=== PATIENT | male | born 1965 | race Caucasian/White ===

== ENCOUNTER 2017-09-30 10:02 | Inpatient (IN) | payer MEDICAID ==
[2017-09-30] MEDS: ONDANSETRON 4 MG INJ IV (13:43)
[2017-09-30] MEDS: SOD CHLORIDE 0.9% 1,000 ML IV ×2 (13:43→17:34)
[2017-09-30 14:24] LABS: ADD MAN DIFF? NO
[2017-09-30 14:33] LABS: ADD UMIC YES; UR ASCORBIC ACID NEGATIVE (NEGATIVE); UR BACTERIA FEW /HPF (NONE SEEN); UR BILIRUBIN (Dip) 1+ mg/dL (NEGATIVE); UR BLOOD (Dip) 1+ mg/dL (NEGATIVE); UR CLARITY SLIGHTLY CLOUDY (CLEAR); UR COLOR AMBER (YELLOW); UR GLUCOSE (Dip) 2+ mg/dL (NEGATIVE); UR HYALINE CAST FEW /HPF (NONE SEEN); UR KETONES (Dip) NEGATIVE (NEGATIVE); UR LEUKOCYTE ESTERASE (Dip) NEGATIVE Leu/ul (NEGATIVE); UR MUCUS MANY /HPF (NONE SEEN); UR NITRITE (Dip) NEGATIVE (NEGATIVE); UR NONSQUAMOUS EPITHELIAL CELL 7 /HPF (NONE SEEN); UR RBC 0 /HPF (0-5); UR SPECIFIC GRAVITY (Dip) 1.031 (1.003-1.030); UR SQUAMOUS EPITHELIAL CELL FEW /HPF (FEW); UR TOTAL PROTEIN (Dip) 2+ mg/dl (NEGATIVE); UR UROBILINOGEN (Dip) 2+ mg/dL (NEGATIVE); UR WBC 23 /HPF (0-5)
[2017-09-30 14:47] LABS: ALANINE AMINOTRANSFERASE 50 IU/L (13-69); ALBUMIN 3.9 g/dl (3.3-4.9); ALBUMIN/GLOBULIN RATIO 0.75; ALKALINE PHOSPHATASE 174 IU/L (42-121); ANION GAP 16 (8-16); ASPARTATE AMINO TRANSFERASE 107 IU/L (15-46); BILIRUBIN,INDIRECT 2.8 mg/dl (0-1.1); BILIRUBIN,TOTAL 3.3 mg/dl (0.2-1.3); BLOOD UREA NITROGEN 12 mg/dl (7-20); CALCIUM 8.8 mg/dl (8.4-10.2); CARBON DIOXIDE 27 mmol/L (21-31); CHLORIDE 95 mmol/L (97-110); CREATININE 0.84 mg/dl (0.61-1.24); GLUCOSE 195 mg/dl (70-220); LIPASE 224 U/L (23-300); POTASSIUM 3.1 mmol/L (3.5-5.1); SODIUM 135 mmol/L (135-144); TOTAL PROTEIN 9.1 g/dl (6.1-8.1)
[2017-09-30 14:48] LABS: WHITE BLOOD COUNT 6.4 10^3/ul (4.8-10.8)
[2017-09-30 14:48] LABS: ABNORMAL IP MESSAGE 1; BASOPHIL # 0.1 10^3/ul (0.0-0.1); BASOPHILS % 0.9 % (0.0-2.0); EOSINOPHILS # 0.2 10^3/ul (0.0-0.5); EOSINOPHILS % 2.7 % (0.0-7.0); HEMATOCRIT 39.3 % (42.0-52.0); HEMOGLOBIN 13.1 g/dl (14.0-18.0); LYMPHOCYTES # 1.4 10^3/ul (0.8-2.9); LYMPHOCYTES % 21.4 % (15.0-51.0); MEAN CORPUSCULAR HEMOGLOBIN 29.4 pg (29.0-33.0); MEAN CORPUSCULAR HGB CONC 33.3 g/dl (32.0-37.0); MEAN CORPUSCULAR VOLUME 88.1 fl (82.0-101.0); MONOCYTE # 1.1 10^3/ul (0.3-0.9); MONOCYTES % 17.4 % (0.0-11.0); NEUTROPHIL # 3.7 10^3/ul (1.6-7.5); NEUTROPHILS % 57.3 % (39.0-77.0); PLATELET COUNT 67 10^3/UL (140-415); POSITIVE DIFF @See below; RED BLOOD COUNT 4.46 10^6/ul (4.70-6.10); RED CELL DISTRIBUTION WIDTH 20.2 % (11.5-14.5)
[2017-09-30] MEDS ORDERED: ACETAMINOPHEN 325 MG TAB PO ×2 (17:30→18:30)
[2017-09-30] MEDS ORDERED: ONDANSETRON 4 MG INJ IV ×2 (17:30→18:30)
[2017-09-30] MEDS: POTASSIUM CHLORIDE 20 MEQ POWDER FOR ORAL SOLN PO (17:33)
[2017-09-30] MEDS ORDERED: LORAZEPAM 2 MG INJ IV (18:30)
[2017-09-30] MEDS ORDERED: HYDROCODONE/APAP (5/325) TAB PO (18:30)
[2017-09-30] MEDS ORDERED: DOCUSATE SODIUM 100 MG CAP PO (18:30)
[2017-09-30] MEDS ORDERED: NA PHOSPHATE/BIPHOS 133 ML ENEMA PR (18:30)
[2017-09-30] MEDS ORDERED: morphine 2 MG INJ IV (18:30)
[2017-09-30] MEDS ORDERED: ALBUTEROL/IPRATROPIUM (NEB) 3 ML AMP HHN (18:30)
[2017-09-30] MEDS ORDERED: NACL 0.9% 3 ML SYG IV (18:30)
[2017-09-30] MEDS ORDERED: hydrALAzine 20 MG INJ IV (18:30)
[2017-09-30] MEDS ORDERED: MAGNESIUM HYDROXIDE 30ML CUP PO (18:30)
[2017-09-30] MEDS ORDERED: NITROGLYCERIN (SL) 0.4 MG TAB SL (18:30)
[2017-09-30 19:37] LABS: INR 1.27; PROTIME 16.1 Sec (11.9-14.9); PT RATIO 1.3
[2017-09-30 19:38] LABS: PARTIAL THROMBOPLASTIN TIME 35.2 Sec (25.0-35.0)
[2017-09-30] MEDS ORDERED: HEPARIN 5,000 UNIT/0.5 ML VIAL SC (21:00)
[2017-09-30] MEDS: INSULIN ASPART [NOVOLOG] 3 ML PEN SC (21:00)
[2017-09-30 21:18] LABS: FREE T4 (FREE THYROXINE) 2.22 ng/dl (0.64-1.79)
[2017-10-01] MEDS: INSULIN ASPART [NOVOLOG] 3 ML PEN SC ×5 (01:00→17:00)
[2017-10-01] MEDS: SOD CHLORIDE 0.9% 1,000 ML IV ×4 (04:25→23:29)
[2017-10-01 05:26] LABS: ADD MAN DIFF? NO
[2017-10-01 05:35] LABS: ABNORMAL IP MESSAGE 1; BASOPHIL # 0.1 10^3/ul (0.0-0.1); BASOPHILS % 1.7 % (0.0-2.0); EOSINOPHILS # 0.3 10^3/ul (0.0-0.5); EOSINOPHILS % 6.4 % (0.0-7.0); HEMATOCRIT 35.3 % (42.0-52.0); HEMOGLOBIN 11.7 g/dl (14.0-18.0); LYMPHOCYTES # 1.4 10^3/ul (0.8-2.9); MEAN CORPUSCULAR HGB CONC 33.1 g/dl (32.0-37.0); MEAN CORPUSCULAR VOLUME 87.6 fl (82.0-101.0); MEAN PLATELET VOLUME 11.2 fl (7.4-10.4); MONOCYTE # 0.9 10^3/ul (0.3-0.9); MONOCYTES % 18.8 % (0.0-11.0); NEUTROPHIL # 2.1 10^3/ul (1.6-7.5); NEUTROPHILS % 43.9 % (39.0-77.0); PLATELET COUNT 59 10^3/UL (140-415); POSITIVE DIFF @See below; RED BLOOD COUNT 4.03 10^6/ul (4.70-6.10)
[2017-10-01 05:35] LABS: WHITE BLOOD COUNT 4.7 10^3/ul (4.8-10.8)
[2017-10-01] MEDS: PANTOPRAZOLE 40 MG INJ IV (05:42)
[2017-10-01 06:11] LABS: PHOSPHORUS 3.2 mg/dl (2.5-4.9)
[2017-10-01 06:11] LABS: MAGNESIUM 1.7 mg/dl (1.7-2.5)
[2017-10-01 06:14] LABS: ALANINE AMINOTRANSFERASE 44 IU/L (13-69); ALBUMIN 3.1 g/dl (3.3-4.9); ALBUMIN/GLOBULIN RATIO 0.68; ALKALINE PHOSPHATASE 131 IU/L (42-121); ANION GAP 12 (8-16); ASPARTATE AMINO TRANSFERASE 89 IU/L (15-46); BILIRUBIN,INDIRECT 2.5 mg/dl (0-1.1); BILIRUBIN,TOTAL 3.2 mg/dl (0.2-1.3); BLOOD UREA NITROGEN 9 mg/dl (7-20); CALCIUM 8.3 mg/dl (8.4-10.2); CARBON DIOXIDE 24 mmol/L (21-31); CHLORIDE 106 mmol/L (97-110); CREATININE 0.54 mg/dl (0.61-1.24); GLUCOSE 138 mg/dl (70-220); POTASSIUM 3.3 mmol/L (3.5-5.1); SODIUM 139 mmol/L (135-144); TOTAL PROTEIN 7.6 g/dl (6.1-8.1)
[2017-10-01 06:19] LABS: CHOLESTEROL 120 mg/dl (100-200)
[2017-10-01 06:19] LABS: CHOL/HDL RATIO 4.2 RATIO; HDL CHOLESTEROL 28 mg/dl (28-71); LDL CHOLESTEROL,CALCULATED 80 mg/dl; TRIGLYCERIDES 61 mg/dl (0-149)
[2017-10-01 07:06] LABS: HEMOGLOBIN A1C 6.2 % (0-5.9)
[2017-10-01] MEDS: POTASSIUM CHLORIDE 50 ML IVPB ×2 (12:24→16:03)
[2017-10-01] MEDS: BARIUM SULF 2% 450 ML BTL (BERRY SMOOTHIE) PO (14:30)
[2017-10-01 16:00] LABS: ALPHA FETOPROTEIN 3.33 IU/L (0.00-7.21)
[2017-10-01 16:29] LABS: HEPATITIS B SURFACE ANTIBODY NEGATIVE (NEGATIVE)
[2017-10-01 17:41] LABS: HEPATITIS B SURFACE ANTIGEN NEGATIVE (NEGATIVE)
[2017-10-01 17:59] LABS: HEPATITIS B CORE ANTIBODY REACTIVE (NEGATIVE); HEPATITIS C VIRAL ANTIBODY NEGATIVE (NEGATIVE)
[2017-10-01] MEDS: Insulin NOVOLOG SS MILD Algorithm (SS with meals and bedtime) SC (20:42)
[2017-10-01] MEDS ORDERED: GLUCOSE GEL 15 GRAM TUBE PO ×2 (21:00)
[2017-10-01] MEDS ORDERED: DEXTROSE 50% 50 ML SYRINGE IV ×2 (21:00)
[2017-10-01] MEDS ORDERED: GLUCOSE GEL 15 GRAM TUBE BUCCAL (21:00)
[2017-10-01] MEDS ORDERED: INSULIN ASPART [NOVOLOG] 3 ML PEN SC (21:00)
[2017-10-01] MEDS ORDERED: GLUCAGON 1 MG INJ IM (21:00)
[2017-10-01] MEDS: IOHEXOL 300MG/ML 150 ML BTL (21:17)
[2017-10-01] MEDS: SOD CHLORIDE 0.9% 100 ML (21:17)
[2017-10-02] MEDS: ACCU-CHEK XX (01:36)
[2017-10-02] MEDS ORDERED: ACCUCHECK AT 2AM (Patients on SS coverage) XX (02:00)
[2017-10-02 05:32] LABS: ADD MAN DIFF? NO
[2017-10-02 05:39] LABS: WHITE BLOOD COUNT 4.3 10^3/ul (4.8-10.8)
[2017-10-02 05:39] LABS: ABNORMAL IP MESSAGE 1; BASOPHIL # 0.1 10^3/ul (0.0-0.1); BASOPHILS % 1.4 % (0.0-2.0); EOSINOPHILS # 0.2 10^3/ul (0.0-0.5); EOSINOPHILS % 5.3 % (0.0-7.0); HEMATOCRIT 34.5 % (42.0-52.0); HEMOGLOBIN 11.5 g/dl (14.0-18.0); LYMPHOCYTES # 1.2 10^3/ul (0.8-2.9); LYMPHOCYTES % 27.9 % (15.0-51.0); MEAN CORPUSCULAR HEMOGLOBIN 29.8 pg (29.0-33.0); MEAN CORPUSCULAR HGB CONC 33.3 g/dl (32.0-37.0); MEAN CORPUSCULAR VOLUME 89.4 fl (82.0-101.0); MEAN PLATELET VOLUME 10.5 fl (7.4-10.4); MONOCYTE # 0.8 10^3/ul (0.3-0.9); MONOCYTES % 18.6 % (0.0-11.0); NEUTROPHILS % 46.8 % (39.0-77.0); PLATELET COUNT 68 10^3/UL (140-415); POSITIVE DIFF @See below; RED BLOOD COUNT 3.86 10^6/ul (4.70-6.10); RED CELL DISTRIBUTION WIDTH 20.1 % (11.5-14.5)
[2017-10-02] MEDS: PANTOPRAZOLE 40 MG INJ IV (06:03)
[2017-10-02 06:52] LABS: ALANINE AMINOTRANSFERASE 43 IU/L (13-69); ALBUMIN 3.1 g/dl (3.3-4.9); ALKALINE PHOSPHATASE 129 IU/L (42-121); ASPARTATE AMINO TRANSFERASE 79 IU/L (15-46); BILIRUBIN,INDIRECT 2.1 mg/dl (0-1.1); BILIRUBIN,TOTAL 2.4 mg/dl (0.2-1.3); TOTAL PROTEIN 7.6 g/dl (6.1-8.1)
[2017-10-02 07:02] LABS: ANION GAP 16 (8-16); BLOOD UREA NITROGEN 8 mg/dl (7-20); CARBON DIOXIDE 24 mmol/L (21-31); CHLORIDE 105 mmol/L (97-110); CREATININE 0.56 mg/dl (0.61-1.24); GLUCOSE 120 mg/dl (70-220); SODIUM 141 mmol/L (135-144)
[2017-10-02 07:05] LABS: ALANINE AMINOTRANSFERASE 41 IU/L (13-69); ALBUMIN 3.2 g/dl (3.3-4.9); ALBUMIN/GLOBULIN RATIO 0.66; ALKALINE PHOSPHATASE 129 IU/L (42-121); ANION GAP 15 (8-16); ASPARTATE AMINO TRANSFERASE 83 IU/L (15-46); BILIRUBIN,INDIRECT 2.1 mg/dl (0-1.1); BILIRUBIN,TOTAL 2.3 mg/dl (0.2-1.3); BLOOD UREA NITROGEN 8 mg/dl (7-20); CALCIUM 9.3 mg/dl (8.4-10.2); CARBON DIOXIDE 23 mmol/L (21-31); CHLORIDE 106 mmol/L (97-110); CREATININE 0.52 mg/dl (0.61-1.24); GLUCOSE 122 mg/dl (70-220); POTASSIUM 3.7 mmol/L (3.5-5.1); SODIUM 140 mmol/L (135-144)
[2017-10-02] MEDS: Insulin NOVOLOG SS MILD Algorithm (SS with meals and bedtime) SC ×2 (07:54→12:08)
[2017-10-02] MEDS: SOD CHLORIDE 0.9% 1,000 ML IV (10:25)
[2017-10-02] MEDS: INFLUENZA VIRUS VACCINE 0.5 ML (DISPENSING) IM* (11:31)
== END 2017-10-02 13:00 | disposition home or self-care (01) | DRG 446 ==
LOC: FTE 10:02 → MS2 17:22
DX: K80.20 Calculus of gallbladder without cholecystitis without obstruction (principal); D69.6 Thrombocytopenia, unspecified; I10 Essential (primary) hypertension; E11.9 Type 2 diabetes mellitus without complications; E78.5 Hyperlipidemia, unspecified; D64.9 Anemia, unspecified; E78.00 Pure hypercholesterolemia, unspecified; F10.10 Alcohol abuse, uncomplicated
CPT/HCPCS: 36415; 74177; 74181; 76705; 80048; 80053; 80061; 80076; 81001; 82105; 82962; 83036; 83690; 83735; 84100; 84439; 84443; 85025; 85610; 85730; 86704; 86706; 86709; 86803; 87086; 87340; 90686; 96361; 96374; 99285-25